=== PATIENT | female | born 1990 ===

== ENCOUNTER 2021-09-17 17:15 | Emergency (ER) | payer OTHER ==
[2021-09-17 19:47] LABS: BASOPHIL 0.3 % (0-2); EOSINOPHIL 0.9 % (0-5); HGB 12.7 g/dl (12.5-16.0); LYMPHOCYTE 26.5 % (15-48); MCH 29.8 pg (25.0-31.0); MCHC 32.6 g/dL (32.0-36.0); MCV 91.5 fL (78.0-100.0); MONOCYTE 6.2 % (0-12); MPV 10.4 fL (6.0-9.5); NEUTROPHIL 65.2 % (41-80); NRBC 0; PLT 225 K/uL (150-400); RBC 4.26 M/uL (4.20-5.40); WBC 11.6 K/uL (4.0-10.5)
== END 2021-09-17 21:35 | disposition home or self-care (01) ==
LOC: FER 17:15
PROVIDERS: Emergency Medicine
DX: O9A.211 Injury, poisoning and certain other consequences of external causes complicating pregnancy, first trimester (principal); S52.502A Unspecified fracture of the lower end of left radius, initial encounter for closed fracture; S30.1XXA Contusion of abdominal wall, initial encounter; Z91.013 Allergy to seafood; V49.40XA Driver injured in collision with unspecified motor vehicles in traffic accident, initial encounter; Z3A.01 Less than 8 weeks gestation of pregnancy
CPT/HCPCS: 36415; 71045; 73090; 73110; 76817; 84702; 85025; 86900; 86901